=== PATIENT | female | born 1945 | race Caucasian/White ===

== ENCOUNTER 2021-03-22 13:57 | Emergency (ER) | payer MEDICARE, OTHER ==
[~2021-03-22 13:57] MED LIST: ASPIRIN325 MG PO; FIORICET1 EACH PO; HABITROL14 MG TD; IRON325 M1 PO; K-DUR20 MEQ PO; LASIX20 MG PO; LIPITOR40 MG PO; LISINOPRIL-HCT1 EAC1 PO; LOPRESSOR25 MG PO; NORCO 5-325 TA1 EACH PO; PANTOPRAZOLE SO20 MG PO; PAXIL40 MG PO; PLAVIX75 M1 PO; PRILOSEC20 MG PO; PRINIVIL10 MG PO; PROPRANOLOL HCL20 MG PO; REQUIP0.25 MG PO; SYMBICORT 80-10.2 GM INH; VIBRAMYCIN100 MG PO; VITAMIN B122500 MCG PO; XARELTO20 MG PO
[2021-03-22 16:11] LABS: BASOPHIL 0.6 % (0-2); EOSINOPHIL 1.3 % (0-7); HCT 42.8 % (37.0-47.0); HGB 12.6 g/dl (12.5-16.0); LYMPHOCYTE 20.8 % (15-48); MCH 25.9 pg (25.0-31.0); MCHC 29.4 g/dL (32.0-36.0); MCV 87.9 fL (78.0-100.0); MONOCYTE 7.3 % (0-12); MPV 10.3 fL (6.0-9.5); NEUTROPHIL 69.5 % (41-80); NRBC 0; PLT 197 K/uL (150-400); RBC 4.87 M/uL (4.20-5.40); RDW 18.7 % (11.5-14.0); WBC 6.3 K/uL (4.0-10.5)
[2021-03-22 16:34] LABS: ALBUMIN 2.9 g/dL (3.4-5.0); BILIRUBIN - TOTAL 0.4 mg/dL (0.2-1.0); CREATININE 0.86 mg/dL (0.51-0.95); GLOBULIN (CALCULATION) 3.9 g/dL; POTASSIUM 4.8 mmol/L (3.5-5.1); TOTAL PROTEIN 6.8 g/dL (6.4-8.2)
[2021-03-23 13:10] LABS: IRON % SATURATION 7.2 %SAT (20-50)
== END 2021-03-22 19:55 | disposition home or self-care (01) ==
LOC: FER 13:57
PROVIDERS: Emergency Medicine
DX: I95.1 Orthostatic hypotension (principal); I10 Essential (primary) hypertension; Z88.0 Allergy status to penicillin; Z88.1 Allergy status to other antibiotic agents; Z88.5 Allergy status to narcotic agent
CPT/HCPCS: 36415; 70450; 80053; 82728; 83540; 83550; 84484; 85025; 93005; J7030

== ENCOUNTER 2022-06-18 07:38 | Emergency (ER) | payer MEDICARE, OTHER ==
[2022-06-18 08:37] LABS: CORONAVIRUS 2019 SARS-COV-2 NEGATIVE (NEGATIVE); INFLUENZA A NAA NEGATIVE (NEGATIVE)
[2022-06-18 08:40] LABS: BASOPHIL 0.4 % (0-2); EOSINOPHIL 1.8 & (0-7); HCT 48.5 % (37.0-47.0); HGB 15.5 g/dl (12.5-16.0); LYMPHOCYTE 21.4 % (15-48); MCH 29.6 pg (25.0-31.0); MCV 92.7 fL (78.0-100.0); MONOCYTE 5.2 % (0-12); MPV 10.8 fL (6.0-9.5); NEUTROPHIL 71.1 % (41-80); PLT 182 K/uL (150-400); RBC 5.23 M/uL (4.20-5.40); RDW 15.3 % (11.5-14.0); WBC 6.67 K/uL (4.0-10.5)
[2022-06-18 08:48] LABS: INR 0.93 (0.9-1.2); PROTHROMBIN TIME 12.2 SECONDS (11.9-13.9); PTT 31.5 SECONDS (24.9-34.6)
[2022-06-18 09:14] LABS: ALBUMIN 3.1 g/dL (3.4-5.0); BILIRUBIN - TOTAL 0.5 mg/dL (0.2-1.0); BUN/CREAT RATIO (CALC) 12.5 RATIO; CREATININE 0.8 mg/dL (0.51-0.95); GLOBULIN (CALCULATION) 4.1 g/dL; POTASSIUM 3.6 mmol/L (3.5-5.1); TOTAL PROTEIN 7.2 g/dL (6.4-8.2)
[2022-06-18 09:27] LABS: BILIRUBIN NEGATIVE (NEGATIVE); BLOOD NEGATIVE Ery/uL (NEGATIVE); CLARITY CLEAR (CLEAR); COLOR YELLOW (YELLOW); GLUCOSE (U) NORMAL (NORMAL); LEUKOCYTES 1+ Leu/uL (NEGATIVE); NITRITE NEGATIVE (NEGATIVE); PROTEIN NEGATIVE (NEGATIVE); SPECIFIC GRAVITY 1.025 (1.001-1.030); UROBILINOGEN 0.2 mg/dL (0.2-1.0); pH 5.5 (5.0-9.0)
[2022-06-18 09:35] LABS: LACTIC ACID 1.9 mmol/L (0.4-1.9)
[2022-06-18 09:35] LABS: AMORPHOUS URATES CRYSTALS MODERATE; BACTERIA TRACE
== END 2022-06-18 13:35 | disposition other institution (70) ==
LOC: FER 07:38
PROVIDERS: Internal Medicine
DX: J96.01 Acute respiratory failure with hypoxia (principal); J44.1 Chronic obstructive pulmonary disease with (acute) exacerbation; I11.0 Hypertensive heart disease with heart failure; I50.9 Heart failure, unspecified; I21.4 Non-ST elevation (NSTEMI) myocardial infarction; R91.8 Other nonspecific abnormal finding of lung field; I25.10 Atherosclerotic heart disease of native coronary artery without angina pectoris; I25.2 Old myocardial infarction; E78.5 Hyperlipidemia, unspecified; F17.210 Nicotine dependence, cigarettes, uncomplicated; Z86.718 Personal history of other venous thrombosis and embolism; Z20.822 Contact with and (suspected) exposure to COVID-19; Z86.73 Personal history of transient ischemic attack (TIA), and cerebral infarction without residual deficits; Z86.711 Personal history of pulmonary embolism; Z95.5 Presence of coronary angioplasty implant and graft
CPT/HCPCS: 36415; 71045; 71275; 80053; 81001; 83605; 83880; 84484; 85025; 85379; 85610; 85730; 87040; 93005; 94640; 94664; J0692; J1644; J2930; J7030; Q9967; U0002